=== PATIENT | male | born 1965 | race Caucasian/White ===

== ENCOUNTER 2017-01-13 00:23 | Inpatient (IN) ==
[2017-01-13] MEDS ORDERED: THIAMINE INJ 100 MG, FOLIC ACID INJ 1 MG, MAGNESIUM SULF INJ 2 GM, MULTIVITAMIN INJ 10 ... IV STA (02:24)
[2017-01-13] MEDS ORDERED: SODIUM CHLORIDE 0.9% 1,000 ML IV STA (02:24)
[2017-01-13] MEDS ORDERED: LORazepam 2 MG/1 ML VIAL IV STA ×3 (02:24→11:49)
[2017-01-13 02:32] LABS: Basophils # 0.1 10*3/uL (0.0-0.2); Basophils % 0.8 % (0.0-0.8); Eosinophils # 0.1 10*3/uL (0.0-0.87); Eosinophils % 1.8 % (0.00-10.9); Hemoglobin 14.4 GM/DL (14.0-18.0); Immature Granulocytes % 0.4 %; Immature Granulocytes Absolute 0.03 #; Lymphocytes # 1.4 10*3/uL (1.4-4.0); Lymphocytes % 17.2 % (21.2-54.2); Mean Corpuscular HGB Conc 32.7 GM/DL (32-36); Mean Corpuscular Hemoglobin 31 PG (27-34); Mean Corpuscular Volume 94.8 FL (87-102); Mean Platelet Volume 10.9 FL (9.6-12.0); Monocytes # 0.8 10*3/uL (0.11-0.8); Monocytes % 10.3 % (1.7-12.7); Neutrophils # 5.5 10*3/uL (1.4-7.4); Neutrophils % 69.5 % (38.7-73.9); Platelet Count 135 T/CUMM (130-400); Red Blood Count 4.64 MC/CUMM (3.8-5.5); Red Cell Distribution Width 17.3 % (9.3-17.3)
[2017-01-13] MEDS ORDERED: LORazepam 2 MG/1 ML VIAL ONE ×3 (02:40→11:50)
[2017-01-13 02:44] LABS: Bilirubin,Total 0.7 MG/DL (0.2-1.0); Osmolality,Calculated 275.5 MOS/KG (273-304); Potassium 3.1 MMOL/L (3.5-5.1); Total Protein 7.8 G/DL (6.4-8.3)
[2017-01-13] MEDS ORDERED: ChlordiazePOXIDE/CLIDINIUM 5-2.5 MG CAPSULE ONE (05:21)
[2017-01-13] MEDS ORDERED: chlordiazePOXIDE 25 MG CAPSULE PO ONE (05:31)
--- NOTE | 2017-01-13 07:49 | Emergency Department Note ---
Enrique Valverde Hilary, am scribing for, and in the presence of, Mylene Escamilla DO 02:30. IAndi Catherine, DO, personally performed the services described in this documentation, ascribed by Priscilla Nunez in my presence, and it is both accurate and complete [id number] . Arrival - Arrival ED Nursing Triage Note: Patient states that he has been withdrawing from alcohol since 01/10/17. Family states that he has been seeing things and hallucinating. Patient's normal daily alcohol consumption ranges from 3-6 24oz beer up to 2 pints of alcohol. Patient awake, alert, oriented x4 and able to answer questions upon triage. Visible tremors and anxiousness noted upon triage. Mode of Arrival: Wheelchair Limitations: No Limitations Source: Patient - History of Present Illness Onset (ago): day(s) Consistency: intermittent Severity: moderate Severity scale (1-10): 4 <Mylene Escamilla - Last Filed: 01/13/17 07:41> <Haider Vela - Last Filed: 01/13/17 11:52> - Arrival Chief Complaint: Non-Specific Stated Complaint: ALCOHOL WITHDRAWL Time Seen by Provider: 01/13/17 00:58 - History of Present Illness HPI Narrative: Patient is a 51 year old White Male presenting to the ED with complaint of hallucinations and "seeing things" per his mother onset of night. Patient confirms that he is an alcoholic and will drink "anything that don't drink him first". He states that when he tries to sleep he thinks people are outside the house and gets very anxious. Pt also states that he had a seizure on so he decided to quit drinking, and has been taking Dilantin since. No other complaints or problems reported in the ED. Patient has a PMH of Alcohol abuse and a TIA. (Priscilla Nunez) Patient is a 51 year old White Male presenting to the ED with complaint of hallucinations and "seeing things" per his mother onset of night. Patient confirms that he is an alcoholic and will drink "anything that don't drink him first". He states that when he tries to sleep he thinks people are outside the house and gets very anxious. Pt also states that he had a seizure on so he decided to quit drinking, and has been taking Dilantin since. No other complaints or problems reported in the ED. Patient has a PMH of Alcohol abuse and a TIA. (Mylene Escamilla) Allergies/Adverse Reactions: Allergies Allergy/AdvReac Type Severity Reaction Status Date / Time No Known Allergies Allergy Unverified 01/10/17 12:56 Home Medications: Home Medications Medication Instructions Recorded Confirmed Type Phenytoin ER Cap [Dilantin Cap] 100 mg PO TID #90 capsule 01/10/17 01/13/17 Rx Review of System - Review of System 12 point system: reviewed and no additional remarkable complaints except as stated - Review of System Constitutional: Present: weakness, other (visible trembling) Eyes: Absent: discharge, pain, redness Head/Ears/Nose/Throat: Absent: earache Respiratory: Absent: cough, respiratory distress Cardiovascular: Absent: chest pain, palpitations Gastrointestinal: Absent: abdominal pain, nausea, vomiting Neurological: Absent: headache, weakness Psychiatric: Present: anxiety, auditory hallucinations, visual hallucinations <Mylene Escamilla - Last Filed: 01/13/17 07:41> Medical,Surgical,& Family Hx - Medical History Psychological: History of: Psychiatric/Substance Abuse Tx (alcohol abuse) Neurology: History of: TIA - Surgical History Surgical History: noncontributory Orthopedic Surgeries: Surgical HX of;: Orthopedic Surgery - Family History Family History: Reports;: Family Cancer, Family Heart Disease - Social History Smoking Status: Current every day smoker Frequency of Alcohol Use: Frequently Type of Drug Use: None Marital Status: Single Lives With:: Parent Functional capacity: independent ambulation <Mylene Escamilla - Last Filed: 01/13/17 07:41> Exam - General General appearance: alert, anxious - Head Head exam: Present: atraumatic, normocephalic - Eye Eye exam: Present: normal appearance, PERRL, EOMI - ENT ENT exam: Present: mucous membranes moist, TM's normal bilaterally - Neck Neck exam: Present: full ROM, trachea midline. Absent: tenderness, meningismus , lymphadenopathy, thyromegaly - Chest Chest inspection: Present: symmetric chest wall rise - Respiratory Respiratory exam: Present: normal lung sounds bilaterally. Absent: accessory muscle use, prolonged expiratory phase - Cardiovascular Cardiovascular exam: Present: regular rate, normal rhythm, normal heart sounds. Absent: murmur, rubs, gallop - Abdominal Exam Abdominal exam: Present: soft, tenderness, normal bowel sounds. Absent: distention, guarding, rebound - Extremities Exam Extremities exam: Present: full ROM, normal capillary refill. Absent: tenderness, pedal edema, calf tenderness - Back Exam Back exam: Present: full ROM. Absent: tenderness - Neurological Exam Neurological exam: Present: alert. Absent: motor sensory deficit - Psychiatric Psychiatric exam: Present: anxious, other (audity and visual hallucinations). Absent: homicidal ideation, suicidal ideation - Skin Skin exam: Present: warm, dry, intact, normal color <Mylene Escamilla - Last Filed: 01/13/17 07:41> Vital Signs: Vital Signs Temperature 97.5 F L 01/13/17 00:45 Pulse Rate 113 H 01/13/17 11:00 Respiratory Rate 18 01/13/17 11:00 Blood Pressure 167/104 01/13/17 11:00 O2 Sat by Pulse Oximetry 96 01/13/17 11:00 Course <Mylene Escamilla - Last Filed: 01/13/17 07:41> <Haider Vela - Last Filed: 01/13/17 11:52> Course Narrative: This is a 51-year-old male who is coming into the ER this morning complaining of symptoms of alcohol withdrawal. He stated he stopped drinking on and is never to drink again. Prior to this time he was a very heavy drinker drinking beer and vodka on a daily basis to an excess. His mother reports that he was treated in the emergency room on for a seizure had a complete workup multiple tests CTs and EEGs and was status post on medication to help with the seizures. She reports he's not had any more seizure episodes but over the last 24-36 hours he's been having some visual hallucinations he is talking about people that are not present he is thought that some people and broke into the house this morning and she also reports he is not sleeping well. He's not had nausea vomiting diarrhea fever chills headache cough congestion or any other symptoms. Physical assessment patient awake alert his vital signs stable HEENT exam is normal neck is supple heart is regular rate and rhythm his lungs are clear his abdomen is rounded soft with no specific tenderness rebound or guarding his extremities are intact his neurologic exam at start of any focal deficits. Psychiatric exam he is having some visual hallucinations and he does have some gaps in his knowledge. He is appropriate he does attempt to answer questions. IV hydration he received a liter of fluid as well as a banana bag. His blood work was fairly unremarkable. The patient received IV Ativan as well as a dose of Librium by mouth. When he was preparing to be discharge the patient's mother stated that she was not credible taking him home stating she can't handle him this way and she is requesting for him to be admitted. I explained to the patient and the patient's mother that we do not admit patients inside the hospital for alcohol detox. I will call [facility] and they will come and make an assessment of the patient to determine if he would be a candidate for treatment at their facility. I have turned over the care of this patient of Dr. Vela who will make a disposition on the patient. (Mylene Escamilla) Patient was evaluated by [facility] at Dr. Escamilla's request and they did not want to admit him to their facility as he was not in acute withdrawal. I discussed patient with Ming who is covering the hospitalist service and the patient will be evaluated here for admission. Patient is obviously in DTs. Patient been given IV Ativan as well as IM Geodon in the emergency room. (Haider Vela) Results - Labs CBC & BMP: 01/13/17 00:47 01/13/17 00:47 Lab Results: I have reviewed the patients labs <Mylene Escamilla - Last Filed: 01/13/17 07:41> - Labs CBC & BMP: 01/13/17 00:47 01/13/17 00:47 Lab Results: I have reviewed the patients labs <Haider Vela - Last Filed: 01/13/17 11:52> - Labs Labs: Laboratory Tests 01/13/17 00:47 WBC 8.0 D RBC 4.64 Hgb 14.4 Hct 44.0 Lymph % (Auto) 17.2 L (Priscilla Nunez) Laboratory Tests 01/13/17 00:47 WBC 8.0 D RBC 4.64 Hgb 14.4 Hct 44.0 Lymph % (Auto) 17.2 L (Mylene Escamilla) Disposition Case discussed with: patient, patient's family <Mylene Escamilla - Last Filed: 01/13/17 07:41> Time of Disposition: 11:51 <Haider Vela - Last Filed: 01/13/17 11:52> Clinical Impression: Alcohol withdrawal, Delirium tremens Condition: Stable
[2017-01-13] MEDS ORDERED: ZIPRASIDONE 20 MG/1 ML VIAL IM STA (10:52)
[2017-01-13] MEDS ORDERED: ZIPRASIDONE 20 MG/1 ML VIAL IM ONE ×2 (10:52→14:01)
[2017-01-13 11:02] LABS: Ammonia < 10 UMOL/L (11-32)
[2017-01-13 11:39] LABS: Barbiturates Screen,Urine Negative (Negative); Benzodiazepines Screen,Urine Negative (Negative); Cannabinoid Screen,Urine Negative (Negative); Opiate Screen,Urine Negative (Negative); Phencyclidine Screen,Urine Negative (Negative)
[2017-01-13] MEDS ORDERED: DIAZEPAM 10 MG/2 ML SYRINGE IV STA ×3 (12:29→13:45)
--- NOTE | 2017-01-13 12:40 | Hospitalist History & Physical ---
Assessment and Plan - Time spent with patient Time spent with patient: Greater than 30 minutes (1) Delirium tremens Status: Acute Assessment and plan: Patient will be placed in the ICU for close observation, neuro checks, hydration , scheduled benzodiazepines with as needed Ativan, multivitamin and thiamine supplementation, and Catapres for hypertension/tachycardia/withdrawal. Will replace electrolytes and follow-up laboratory studies in the a.m. Current Visit: Yes History of Present Illness Chief complaint: Alcohol withdrawal History of present illness: Mr. Nieves is a 51 year old male who states he used to drink heavily with his last intake of beer on . He apparently had a seizure was seen in the emergency room and has had an outpatient workup including CTs and EEGs. He is currently taking Dilantin. He was brought to the emergency room last evening for possible alcohol withdrawal and has been observed overnight. He was evaluated by [facility] who refused to accept him in transfer. He will be admitted for DTs and begin detox while here. He denies any fever, chills, chest pain, shortness breath, abdominal pain, nausea, vomiting, diarrhea, constipation, melena, hematochezia, hematemesis, dysuria, hematuria, urinary frequency urgency or incontinence. He has had some hallucinations and has been intermittently confused and agitated. Home Medications Medication Instructions Recorded Confirmed Type Phenytoin ER Cap [Dilantin Cap] 100 mg PO TID #90 capsule 01/10/17 01/13/17 Rx Allergies Allergy/AdvReac Type Severity Reaction Status Date / Time No Known Allergies Allergy Unverified 01/10/17 12:56 Medical,Surgical,& Family Hx - Medical History Psychological: History of: Psychiatric/Substance Abuse Tx (alcohol abuse) Neurology: History of: TIA - Surgical History Orthopedic Surgeries: Surgical HX of;: Orthopedic Surgery - Family History Family History: Reports;: Family Cancer, Family Heart Disease - Social History Smoking Status: Current every day smoker Have you smoked in the last 12 months: Yes Time spent discussing smoking cessation with patient: 3 to 10 minutes Frequency of Alcohol Use: Frequently Type of Drug Use: None Marital Status: Single Lives With:: Alone 12 point system: reviewed and no additional remarkable complaints except as stated Exam - Constitutional Vitals: Period Temp Pulse Resp BP Sys/Eller Pulse Ox Last 24 Hr 133 24 138/102 97 General appearance: no acute distress - Head Head exam: Present: normocephalic, atraumatic - Eye Eye exam: Present: EOMI Pupils: Present: ESTHELA - ENT ENT exam: Present: normal exam - Neck Neck exam: Present: normal inspection - Respiratory Respiratory exam: Present: clear to auscultation bilaterally. Absent: rales, rhonchi, wheezes - Cardiovascular Cardiovascular exam: Present: regular rate and rhythm, tachycardia. Absent: gallop, JVD, rubs, systolic murmur - GI/Abdominal GI/Abdominal exam: Present: normal bowel sounds, soft. Absent: distended, mass , tenderness, rebound - Extremities Exam Extremities exam: Present: normal capillary refill. Absent: calf tenderness, edema - Back Exam Back exam: Present: normal inspection - Neurological Exam Neurological exam: Present: alert, CN II-XII intact, other (Oriented to person) . Absent: oriented X3, motor sensory deficit - Psychiatric Psychiatric exam: Present: agitated, anxious. Absent: homicidal ideation, suicidal ideation - Skin Skin exam: Present: warm, dry. Absent: erythema, rash Results - Labs CBC & BMP: 01/13/17 00:47 01/13/17 00:47 Lab Results: I have reviewed the past 24 hour labs Labs: CT head, EKG, EEG were reviewed from 01-10-17 and - EKG EKG shows: sinus rhythm - Diagnostic Findings Procedure: CT: report reviewed by me
[2017-01-13] MEDS ORDERED: DIAZEPAM 10 MG/2 ML SYRINGE ONE ×2 (12:42→13:28)
[2017-01-13] MEDS ORDERED: ONDANSETRON 4 MG/2 ML VIAL IV PRN (14:01)
[2017-01-13] MEDS ORDERED: LORazepam 2 MG/1 ML VIAL IV PRN (14:01)
[2017-01-13] MEDS ORDERED: DIAZEPAM 10 MG/2 ML SYRINGE IV ONE ×6 (14:01→14:03)
[2017-01-13] MEDS ORDERED: LORazepam 2 MG/1 ML VIAL IV ONE ×2 (14:56→15:15)
[2017-01-13] MEDS: chlordiazePOXIDE 25 MG CAPSULE PO SCH ×3 (14:56→21:21)
[2017-01-13] MEDS: PHENYTOIN ER 100 MG CAPSULE PO SCH ×2 (15:37→21:22)
[2017-01-13] MEDS: cloNIDine 0.1 MG TABLET PO SCH ×2 (15:37→21:21)
[2017-01-13] MEDS: LORazepam 2 MG/1 ML VIAL IV PRN (15:45)
[2017-01-13] MEDS ORDERED: METOPROLOL TARTRATE 5 MG/5 ML VIAL IV ONE (16:46)
[2017-01-13] MEDS: POTASSIUM CHLORIDE INJ 20 MEQ, MAGNESIUM SULF INJ 1 GM in DEXTROSE 5% NACL 0.9% 1,000 ML IV SCH (16:54)
[2017-01-13] MEDS: METOPROLOL TARTRATE 5 MG/5 ML VIAL IV SCH ×2 (18:35→23:40)
[2017-01-14] MEDS: POTASSIUM CHLORIDE INJ 20 MEQ, MAGNESIUM SULF INJ 1 GM in DEXTROSE 5% NACL 0.9% 1,000 ML IV SCH ×2 (01:02→09:22)
[2017-01-14 04:45] LABS: Basophils # 0.1 10*3/uL (0.0-0.2); Basophils % 0.8 % (0.0-0.8); Eosinophils # 0.1 10*3/uL (0.0-0.87); Eosinophils % 1.9 % (0.00-10.9); Hematocrit 40.8 VOL% (42.0-52.0); Hemoglobin 13.3 GM/DL (14.0-18.0); Immature Granulocytes % 0.3 %; Immature Granulocytes Absolute 0.02 #; Lymphocytes # 1.1 10*3/uL (1.4-4.0); Lymphocytes % 15.6 % (21.2-54.2); Mean Corpuscular HGB Conc 32.6 GM/DL (32-36); Mean Corpuscular Hemoglobin 31 PG (27-34); Mean Corpuscular Volume 94.9 FL (87-102); Mean Platelet Volume 10.6 FL (9.6-12.0); Monocytes # 0.8 10*3/uL (0.11-0.8); Monocytes % 10.6 % (1.7-12.7); Neutrophils # 5.2 10*3/uL (1.4-7.4); Neutrophils % 70.8 % (38.7-73.9); Platelet Count 133 T/CUMM (130-400); Red Cell Distribution Width 17.5 % (9.3-17.3); White Blood Count 7.3 T/CUMM (4-12)
[2017-01-14 05:24] LABS: Albumin 3.5 G/DL (3.4-5.0); Bilirubin,Total 1.2 MG/DL (0.2-1.0); Calcium 8.5 MG/DL (8.5-10.1); Magnesium 2.7 MG/DL (1.8-2.4); Osmolality,Calculated 280.1 MOS/KG (273-304); Potassium 3.3 MMOL/L (3.5-5.1); Thyroid Stimulating Hormone 2.07 uIU/ml (0.358-3.74); Total Protein 6.1 G/DL (6.4-8.3)
[2017-01-14] MEDS: METOPROLOL TARTRATE 5 MG/5 ML VIAL IV SCH (06:29)
[2017-01-14] MEDS: LORazepam 2 MG/1 ML VIAL IV PRN (07:47)
[2017-01-14] MEDS ORDERED: PANTOPRAZOLE 40 MG TABLET PO SCH (09:00)
[2017-01-14] MEDS: cloNIDine 0.1 MG TABLET PO SCH ×2 (09:11→15:39)
[2017-01-14] MEDS: chlordiazePOXIDE 25 MG CAPSULE PO SCH ×3 (09:11→16:43)
[2017-01-14] MEDS: PHENYTOIN ER 100 MG CAPSULE PO SCH ×2 (09:14→15:39)
[2017-01-14] MEDS ORDERED: POTASSIUM CHLORIDE 20 MEQ TABLET PO ONE (10:20)
--- NOTE | 2017-01-14 10:25 | Hospitalist Progress Note ---
Assessment and Plan (1) Alcohol withdrawal Status: Acute Assessment and plan: 1)alcohol withdrawal/DTs for the first time (first time he has quit drinking too )- under better control with librium. Start thiamine and folate po, continue oral librium. Transfer to floor, stop henson. 2)Hypomagnesemia- stop replacement now that his Mg is 2.7 3)hypokalemia- replace orally 4)seizure- he doubts he has a seizure disorder. I would blame it on his withdrawal but it happened not long after what turned out to be his last drink last morning so he wasn't withdrawing at that time. It may still be part of his alcohol dependence. COnitnue his dilantin for now. His work up was as an outpatient. Current Visit: Yes (2) New onset seizure Status: Acute Current Visit: No (3) Delirium tremens Status: Acute Current Visit: Yes Hospitalist: Subjective Interval history: Mr Nieves has not had any hallucinations since he got here, but when he arrived less than 24 hours ago he was combative and "out of his mind". He does not remember any of that. He denies pain. he is hungry. He says it was shocking to wake this morning in restraints- he says it felt like he was in a dungeon. He has been a heavy drinker for many years. He quit last and plans to stay sober. He is interested in detox help. He smoked pot every day from age 13 to 43. Exam - Constitutional Vitals: Period Temp Pulse Resp BP Sys/Eller Pulse Ox Last 24 Hr 97.8 F-99.5 F 74-153 16-26 126-178/69-127 92-100 General appearance: normal weight, no acute distress - Head Head exam: Present: normocephalic, atraumatic - Eye Eye exam: Present: EOMI. Absent: scleral icterus Pupils: Present: ESTHELA - Respiratory Respiratory exam: Present: clear to auscultation bilaterally - Cardiovascular Cardiovascular exam: Present: regular rate and rhythm - GI/Abdominal GI/Abdominal exam: Present: normal bowel sounds, soft. Absent: tenderness - Extremities Exam Extremities exam: Absent: edema - Neurological Exam Neurological exam: Present: alert, oriented X3, CN II-XII intact. Absent: motor sensory deficit - Psychiatric Psychiatric exam: Present: normal affect. Absent: anxious, homicidal ideation, suicidal ideation - Skin Skin exam: Present: warm, dry Results - Labs CBC & BMP: 01/14/17 04:03 01/14/17 04:03 Lab Results: I have reviewed the past 24 hour labs
[2017-01-14] MEDS ORDERED: SODIUM CHLORIDE 0.45% 1,000 ML IV SCH (10:30)
[2017-01-14] MEDS ORDERED: METOPROLOL TARTRATE 25 MG TABLET PO SCH (10:30)
[2017-01-14] MEDS ORDERED: FOLIC ACID 1 MG TABLET PO SCH (10:30)
[2017-01-14] MEDS ORDERED: THIAMINE 100 MG TABLET PO SCH (10:30)
[2017-01-14 15:06] LABS: Calcium 8.1 MG/DL (8.5-10.1); Osmolality,Calculated 277.3 MOS/KG (273-304); Potassium 4.1 MMOL/L (3.5-5.1)
--- NOTE | 2017-01-14 15:11 | Discharge Summary ---
Hospital Course - Hospital Course Hospital Course: Mr Nieves presented yesterday with DTs. He is a long time alcoholic who quit last Saturday when he had a seizure for the first time (he had been drinking that morning). Within 24 hours he started having visual hallucinations and vivid dreams and when he presented last night he was agitated and out of control. He has received Librium and his hallucinations have stopped. He is interested in quitting alcohol and will be transferred to [facility] today for detox. His hypokalemia and hypomagnesemia have been replaced. - Time spent with patient Time with patient DS: Less than 30 minutes Diagnosis - Discharge Diagnosis (1) Alcohol withdrawal Status: Acute (2) New onset seizure Status: Acute (3) Delirium tremens Status: Acute (4) Hypokalemia Status: Resolved (5) Hypomagnesemia Status: Resolved Specialty Discharge - Follow Up or Referrals Follow up with: Your, PCP [Other] (when discharged from [facility]) Discharge Plan - Discharge Data Disposition: Disch/Xfer to Psych Hos Condition at Discharge: Stable Discharge Diet: heart healthy, regular diet Activity: resume usual activities as tolerated - Discharge Medications New Folic Acid Tab 1 mg PO DAILY tablet Pantoprazole Tab [Protonix Tab] 40 mg PO DAILY tablet Thiamine Tab [Vitamin B1 Tab] 100 mg PO DAILY tablet chlordiazePOXIDE [Librium] 50 mg PO QID capsule cloNIDine TAB [Catapres Tab] 0.1 mg PO TID tablet Metoprolol Tartrate Tab [Lopressor Tab] 25 mg PO BID tablet Continue Phenytoin ER Cap [Dilantin Cap] 100 mg PO TID #90 capsule - Follow Up or Referral - Forms/Instructions Exam - Constitutional Vitals: Period Temp Pulse Resp BP Sys/Eller Pulse Ox Last 24 Hr 97.5 F-99.5 F 67-121 16-23 109-179/69-127 92-99 General appearance: normal weight, no acute distress - Eye Eye exam: Present: EOMI. Absent: scleral icterus - Respiratory Respiratory exam: Present: clear to auscultation bilaterally - Cardiovascular Cardiovascular exam: Present: regular rate and rhythm - GI/Abdominal GI/Abdominal exam: Present: normal bowel sounds, soft. Absent: tenderness - Extremities Exam Extremities exam: Absent: edema - Neurological Exam Neurological exam: Present: alert, oriented X3 - Psychiatric Psychiatric exam: Absent: agitated, anxious - Skin Skin exam: Present: warm, dry Discharge Results Procedures and tests throughout hospitalization: Pending Orders 01/15/17 04:00 Basic Metabolic Panel IN AM Labs on day of discharge: Labs from last 24 hours 01/14/17 01/14/17 01/14/17 14:28 04:03 04:03 WBC RBC Hgb Hct MCV MCH MCHC RDW Plt Count MPV Neut % (Auto) Lymph % (Auto) Bryan % (Auto) Eos % (Auto) Baso % (Auto) Neut # (Auto) Lymph # (Auto) Bryan # (Auto) Eos # (Auto) Baso # (Auto) Immature Gran % Nucleated RBC % Immature Gran # Nucleated RBCs # Sodium 141 142 Potassium 4.1 3.3 L Chloride 109 H 109 H Carbon Dioxide 24 23 Anion Gap 12.1 13.3 BUN 3 L 3 L Creatinine 0.80 0.70 GFR Calculation 110 117 BUN/Creatinine Ratio 3.00 L 4.00 L Glucose 103 116 H Calculated Osmolality 277.3 280.1 Calcium 8.1 L 8.5 Magnesium 2.7 H Total Bilirubin 1.20 H AST 92 H ALT 83 H Alkaline Phosphatase 81 Total Protein 6.1 L Albumin 3.5 Globulin 2.6 Albumin/Globulin Ratio 1.3 Free T4 0.81 TSH 3rd Generation 2.070 01/14/17 04:03 WBC 7.3 RBC 4.30 Hgb 13.3 L Hct 40.8 L MCV 94.9 MCH 31 MCHC 32.6 RDW 17.5 H Plt Count 133 MPV 10.6 Neut % (Auto) 70.8 Lymph % (Auto) 15.6 L Bryan % (Auto) 10.6 Eos % (Auto) 1.9 Baso % (Auto) 0.8 Neut # (Auto) 5.2 Lymph # (Auto) 1.1 L Bryan # (Auto) 0.8 Eos # (Auto) 0.1 Baso # (Auto) 0.1 Immature Gran % 0.3 Nucleated RBC % 0.0 Immature Gran # 0.02 Nucleated RBCs # 0.00 Sodium Potassium Chloride Carbon Dioxide Anion Gap BUN Creatinine GFR Calculation BUN/Creatinine Ratio Glucose Calculated Osmolality Calcium Magnesium Total Bilirubin AST ALT Alkaline Phosphatase Total Protein Albumin Globulin Albumin/Globulin Ratio Free T4 TSH 3rd Generation DS: Provider Date of admission: 01/13/17 11:53 Primary care physician: Shyanne Patel MD Attending physician on admission: Perla Streling Consults: 01/14/17 10:20 Consult to Case Mgmt/Social Srvs [CONS] Routine Reason for Case Mgmt/Social Srvs: Other Consult Comment: alcohol rehab options Discharging clinician: Shyanne Patel MD
[2017-01-14 15:59] VITALS: BP 130/81
== END 2017-01-14 17:15 | DRG 897 ==
LOC: N.ED 00:23 → SUATTDRO 11:53 → N.EDINP 11:53 → N.CC 13:25 → N.4E 01-14 13:34
PROVIDERS: ADMIT Hospitalist; ATTEND Internal Medicine